=== PATIENT | female | born 1970 | race Caucasian/White ===

== ENCOUNTER → 2023-05-26 | Outpatient (CLI) | payer OTHER, SELFPAY ==
--- OUTSIDE RECORDS SUMMARY | 2023-05-26 11:59 | XMS RPT_ITS | CCD ---
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 Name Role Phone HILLS, KYARA Primary Care Unavailable HILLS, KYARA Admitting Unavailable HILLS, KYARA Attending Unavailable HILLS, KYARA Consulting Unavailable PROVIDER, UNKNOWN Consulting Unavailable HILLS, KYARA Primary Care Unavailable HILLS, KYARA Admitting Unavailable HILLS, KYARA Attending Unavailable HILLS, KYARA Consulting Unavailable PROVIDER, UNKNOWN Consulting Unavailable HILLS, KYARA Primary Care Unavailable HILLS, KYARA Admitting Unavailable HILLS, KYARA Attending Unavailable HILLS, KYARA Consulting Unavailable PROVIDER, UNKNOWN Consulting Unavailable EARL, JOHN Lauren Attending Unavailable EARL, JOHN C Primary Care Unavailable EARL, JOHN C Admitting Unavailable HILLS, KYARA Referring Unavailable HILLS, KYARA Consulting Unavailable PROVIDER, UNKNOWN Consulting Unavailable HILLS, KYARA Consulting Unavailable VALENTINO, KETURAH Attending Unavailable VALENTINO, KETURAH Primary Care Unavailable VALENTINO, KETURAH Admitting Unavailable PROVIDER, UNKNOWN Consulting Unavailable VALENTINO, KETURAH Attending Unavailable VALENTINO, KETURAH Primary Care Unavailable VALENTINO, KETURAH Admitting Unavailable HILLS, KYARA Consulting Unavailable PROVIDER, UNKNOWN Consulting Unavailable HILLS, KYARA Primary Care Unavailable HILLS, KYARA Admitting Unavailable HILLS, KYARA Attending Unavailable HILLS, KYARA Consulting Unavailable PROVIDER, UNKNOWN Consulting Unavailable Allergies Allergy Classification Reported Allergen(s) Allergy Type Date of Onset Reaction(s) Facility (1 source) Shellfish; Translations: [SHELLFISH] Food allergy (disorder) [facility] Repository Problems Active Problems Problem Classification Problem Date Documented Da te Episodic/Chronic Diabetes mellitus with complications (1 source) Type 2 diabetes mellitus with hyperglycemia; Translations: [Type 2 diabetes mellitus with hyperglycemia] Onset: 11-05-2022 Chronic Other inflammatory condition of skin (1 source) Psoriasis, unspecified; Translations: [Psoriasis, unspecified] Onset: 02-11-2023 Chronic Other liver diseases (1 source) Fatty (change of) liver, not elsewhere classified; Translations: [Fatty (change of) liver, not elsewhere classified] Onset: 11-05-2022 Chronic Other non-traumatic joint disorders (1 source) Pain in unspecified joint; Translations: [Pain in unspecified joint] Onset: 02-11-2023 Episodic Other non-traumatic joint disorders (1 source) Stiffness of unspecified joint, not elsewhere classified; Translations: [Stiffness of unspecified joint, not elsewhere classified] Onset: 02-11-2023 Episodic Past or Other Problems Problem Classification Problem Date Documented Date Episodic/Chronic Abdominal pain (2 sources) Upper abdominal pain, unspecified; Translations: [Upper abdominal pain, unspecified] Onset: 08-17-2022 Episodic Biliary tract disease (4 sources) Calculus of bile duct without cholangitis or cholecystitis without obstruction; Translations: [Calculus of gallbladder without cholecystitis without obstruction] Onset: 07-28-2022 Episodic Diabetes mellitus without complication (1 source) Prediabetes; Translations: [Prediabetes] Onset: 08-17-2022 Episodic Other aftercare (1 source) shelter (current) use of oral hypoglycemic drugs; Translations: [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] Onset: 08-17-2022 Episodic Other screening for suspected conditions (not mental disorders or infectious disease) (1 source) Encounter for screening for lipoid disorders; Translations: [Encounter for screening for lipoid disorders] Onset: 11-05-2022 Episodic Results Test Name Value Interpretation Reference Range Facil ity Encounters Encounter Date Encounter Type Care Provider Facility Start: 02-11-2023 End: 02-11-2023 ambulatory [facility] Start: 11-05-2022 End: 11-05-2022 ambulatory [facility] Start: 08-26-2022 End: 08-26-2022 ambulatory [facility] Start: 08-17-2022 Emergency department patient visit JOHN EARL [facility] Start: 08-17-2022 End: 08-17-2022 ambulatory [facility] Start: 07-28-2022 End: 05-16-2023 ambulatory KETUR[facility] Start: 04-16-2022 End: 04-16-2022 ambulatory [facility] Procedures Date Procedure Procedure Detail Performing Clinician Start: 07-04-2022 Urinalysis KYARA HUI Payers Date Payer Category Payer Unknown [id number] [id number] 1970 Unknown [id number] [id number] 1970 Unknown [id number] 2.16.84 [id number] 1970 Unknown [id number] 2.16.84 [id number] 1970 Unknown [id number] 2.16.84 [id number] 1970 Unknown [id number] 2.16.84 [id number] 1970 Unknown [id number] 2.16.84 [id number] Unknown [id number] Unknown [id number] Summary Purpose Family History No Family History Records FoundNo Family History Records FoundNo Family History Records FoundNo Family History Records Found Advance Directives No Advanced Directives Records FoundNo Advanced Directives Records FoundNo Advanced Directives Records FoundNo Advanced Directives Records Found Additional Source Comments INFORMATION SOURCE (unrecogn ized section and content) DATE CREATED AUTHOR AUTHOR'S ORGANIZ ATION 11/15/2019 [facility] DATE CREATED AUTHOR AUTHOR'S ORGANIZ ATION 08/25/2022 [facility] ([place]) DATE CREATED AUTHOR AUTHOR'S ORGANIZ ATION 02/19/2023 [facility] FOR RECORDS PERTAINING TO PATIENTS WHO ARE OR HAVE BEEN ENROLLED IN A CHEMICAL DEPENDENCY/SUBSTANCEABUSE PROGRAM, SOME INFORMATION MAY BE OMITTED. This clinical summary was aggregated from multiple sources. Caution should be exercised in using it in the provision of clinical care. This summary normalizes information from multiple sources, and as a consequence, information in this document may materially change the coding, format and clinical context of patient data. In addition, data may be omitted in some cases. CLINICAL DECISIONS SHOULD BE BASED ON THE PRIMARY CLINICAL RECORDS. [employer] [facility]. provides no warranty or guarantee of the accuracy or completeness of information in this document.
[2023-05-26 12:25] LABS: Erythrocyte Sedimentation Rate 19 mm/hr (0-30)
[2023-05-26 12:28] LABS: Absolute Lymphocyte Count 1.67 X10^3/uL (0.83-4.51); Absolute Neutrophil Count 5.9 X10^3/uL (2.0-7.7); Basophil# 0.04 X10^3/uL; Basophil% 0.5 % (0-1); Eosinophil# 0.21 X10^3/uL; Eosinophils% 2.5 % (0-5); Hematocrit 29.5 % (37-47); Hemoglobin 8.2 g/dL (12.0-15.0); Lymphocyte # 1.67 X10^3/ul (0.83-4.51); Mean Corp Hgb Conc 27.8 g/dL (32-36); Mean Corpuscular Hgb 19.7 pg (27.0-32.0); Mean Corpuscular Volume 70.7 fL (81-99); Mean Platelet Vol. 9.5 fl (6.2-12.0); Monocyte# 0.47 X10^3/uL; Monocyte% 5.6 % (0-10); NRBC Flagged by Analyzer 0 % (0-5); Neutrophil # 5.92 X10^3/uL (2.7-7.7); Neutrophil % 71.2 % (47-70); Platelet Count 564 K/mm3 (150-450); RBC Distribution Width CV 18.6 % (11.6-14.6); RBC Distribution Width SD 47.1 fl (35.1-43.9); Red Blood Count 4.17 M/mm3 (4.2-5.4); White Blood Count 8.3 K/mm3 (4.4-11.0)
[2023-05-26 12:54] LABS: AST(SGOT) 11 U/L (15-37); Alanine Aminotransfer ALT/SGPT 19 U/L (13-56); Albumin, Serum 3.8 g/dL (3.2-5.0); Alkaline Phosphatase 75 U/L (45-117); Anion Gap 9 (5-15); BUN 21 mg/dL (7-18); BUN/Creat Ratio 32.8 RATIO (10-20); Calcium,Total 9.1 mg/dL (8.5-10.1); Chloride 100 mmol/L (98-107); Creatinine, Serum 0.64 mg/dL (0.55-1.02); EST Glomerular Filtration Rate 103 mL/min (>60); Est Glom Filt Rate - Afr Amer 124 mL/min (>60); Glucose 131 mg/dL (74-106); Potassium 3.5 mmol/L (3.5-5.1); Protein, Total 7.8 g/dL (6.4-8.2); Sodium Level 137 mmol/L (136-145)
[2023-05-26 13:27] LABS: Hepatitis B Surface Antibody Non-Reactive; Hepatitis B Surface Antigen Non-Reactive (Nonreactive); Hepatitis C Antibody Non-Reactive (Nonreactive)
[2023-05-27 12:09] LABS: CCP IgG Antibodies 0 units (0-19)
== END | disposition home or self-care (01) ==
LOC: MTLAB 10:02
PROVIDERS: PCP Family Medicine; Referring Provider Internal Medicine Rheumatology; Visit Provider Internal Medicine Rheumatology
DX: L40.59 Other psoriatic arthropathy (principal); E11.9 Type 2 diabetes mellitus without complications; L40.8 Other psoriasis; M72.2 Plantar fascial fibromatosis; K21.9 Gastro-esophageal reflux disease without esophagitis; K76.0 Fatty (change of) liver, not elsewhere classified
CPT/HCPCS: 36415; 80053; 85025; 85652; 86140; 86200; 86431; 86706; 86803; 87340